=== PATIENT | female | born 1955 | race Caucasian/White ===

== ENCOUNTER 2017-10-15 17:26 | Inpatient (IN) | payer OTHER ==
--- NOTE | 2017-10-15 18:38 | ED.PDOC ---
General Stated Complaint: generalized weakness, fatigue , puritic rash, cough Time Seen by Physician: 17:34 (pt's daughter stated the pt has never seen a a doctor on a regular basis) Mode of Arrival: Wheelchair Information Source: Patient Exam Limitations: No limitations (pt sees a rhumatologist but has missed many landmark screen exams i.e mamography,pap smear ect) Nursing and Triage Documentation Reviewed and Agree: Yes (PT IS ON MTX FOR RA ) Reviewed sepsis parameters & appropriate labs ordered?: Yes System Inflammatory Response Syndrome: Not Applicable System Inflammatory Response Syndrome: Not Applicable <ANIKA SCHULTE - Last Filed: 10/15/17 18:36> <STEPHIE NARVAEZ - Last Filed: 10/15/17 19:42> ED Provider: Dr. STEPHIE NARVAEZ Chief Complaint: Non-specific Complaint Primary Care Provider: STEPHIE N[facility]VAEZ[facility] Sepsis Protocol: For patient's 13 years and over: Temp is 96.8 and below OR 101 and greater Pulse >90 BPM Resp >20/minute Acutely Altered Mental Status Are patient's symptoms suggestive of a new infection, such as: -Pneumonia -Skin, Soft Tissue -Endocarditis -UTI -Bone, Joint Infection -Implantable Device -Acute Abdominal Infection -Wound Infection -Meningitis -Blood Stream Catheter Infection -Unknown Miscellaneous Complaint Exam - Complex/Multi-System Complaint/Exam Onset/Duration: this is a ongoing issue interms of longstanding cough, generalized weakness Symptoms Are: Still present (worse past month) Episodes Lasting: Weeks Initial Severity: Moderate Current Severity: Moderate Location of Pain: no pain offered Pain Radiates to: N/A Character: N/A Aggravating: N/A Alleviating: N/A Associated Signs and Symptoms: Reports: Weakness, Cough. Denies: Decreased responsiveness, Confusion, Agitation, Dizziness, Syncope, Headache, Short of air , Wheezing, Hemoptysis, Chest pain, Palpitations, Edema, Nausea, Vomiting, Diarrhea, Abdominal pain, Back pain, Dysuria, Hematemesis, Melena, Decreased oral intake, Fever, Diaphoresis, Immunocompromised, Anticoagulation Therapy, Recent medication changes, Indwelling certified court/medical interpreter, Prior MRSA, Prior VRE, Recent trauma, Remote trauma Recent Echo/LV Function: No Respiratory Distress: None JVD Present: No Tachypnea Present: No Stridor Present: No Abdominal Findings: Present: Normal findings Glascow Coma Scale (see protocol): 15 Meningeal Signs Positive: No Focal Weakness: Present: None Gait: Normal Gag Reflex Present: Yes Babinski Sign: Negative Right, Negative Left Skin Findings: Present: Rash (ON EXT SIDE OF UPPER EXT CHRONIC) Joint Swelling Present: No In-Dwelling Device Present: No Quality Indicators for Cardiac Chest Pain: EKG in 10min. Quality Indicators for AMI: EKG in 10min. Quality Indicator For Non-Traumatic Chest Pain/Syncope: EKG Performed <ANIKA SCHULTE Last Filed: 10/15/17 18:36> Review of Systems - Review Of Systems Constitutional: Reports: Malaise, Weakness, Loss of appetite Eyes: Reports: No symptoms Ears, Nose, Mouth, Throat: Reports: No symptoms Respiratory: Reports: Cough Cardiac: Reports: No symptoms GI: Reports: No symptoms : Reports: No symptoms Musculoskeletal: Reports: No symptoms Skin: Reports: No symptoms Neurological: Reports: No symptoms Endocrine: Reports: No symptoms Hematologic/Lymphatic: Reports: No symptoms All Other Systems: Reviewed and Negative <ANIKA SCHULTE Filed: 10/15/17 18:36> Past Medical History - Past Medical History Previously Healthy: No Endocrine: Reports: None Cardiovascular: Reports: None Respiratory: Reports: None Hematological: Reports: None Gastrointestinal: Reports: None Genitourinary: Reports: None Neuro/Psych: Reports: None Musculoskeletal: Reports: None Cancer: Reports: None Last Menstrual Period: unknown - Surgical History General Surgical History: Reports: None - Family History Family History: Reports: None - Social History Smoking Status: Current every day smoker, Heavy tobacco smoker Hx Substance Use: No Alcohol Screening: None <ANIKA SCHULTE Last Filed: 10/15/17 18:36> Physical Exam - Physical Exam Appearance: Ill-appearing Ill-appearing: Moderate Pain Distress: Mild Eyes: MEGHAN, EOMI, Conjunctiva clear ENT: Dry mucosa Respiratory: Breath sounds diminished, Rhonchi Cardiovascular: RRR, Pulses normal, No rub, No murmur GI/: Soft, Nontender, No masses, Bowel sounds normal, No Organomegaly Musculoskeletal: Normal strength, ROM intact, No edema, No calf tenderness Skin: Warm, Dry, Normal color Neurological: Sensation intact, Motor intact, Reflexes intact, Cranial nerves intact, Alert, Oriented Psychiatric: Affect appropriate, Mood appropriate <ANIKA SCHULTE - Last Filed: 10/15/17 18:36> Interpretation - Radiology Interpretation Radiology Interpretation By: Radiologist Radiology Results: Positive Exam Interpreted: CT Scan <STEPHIE NARVAEZ - Last Filed: 10/15/17 19:42> Physician Notification - Case Discussed Physician Notified: BRICE Time of Notification: 18:41 <FRANCAANIKA - Last Filed: 10/15/17 18:36> Critical Care Note - Critical Care Note Total Time (mins): 0 <ANIKA SCHULTE - Last Filed: 10/15/17 18:36> Course - Course Hematology/Chemistry: 10/15/17 18:10 <ANIKA SCHULTE - Last Filed: 10/15/17 18:36> - Course Hematology/Chemistry: 10/15/17 18:10 10/15/17 18:10 <STEPHIE NARVAEZ - Last Filed: 10/15/17 19:42> - Course Orders, Labs, Meds: Lab Review 10/15/17 10/15/17 10/15/17 18:10 18:10 18:10 WBC 15.58 H RBC 3.64 L Hgb 13.5 Hct 38.4 MCV 105.5 H MCH 37.1 H MCHC 35.2 RDW Coeff of Marybel 14.0 Plt Count 515 H Immature Gran % (Auto) 1.4 Neut % (Auto) 66.1 Lymph % (Auto) 18.5 Grimes % (Auto) 13.5 H Eos % (Auto) 0.1 Baso % (Auto) 0.4 Immature Gran # (Auto) 0.2 Neut # 10.3 H Lymph # 2.9 Grimes # 2.1 H Eos # 0.0 Baso # 0.1 PT INR APTT Sodium 133 L Potassium 3.2 L Chloride 92 L Carbon Dioxide 30 Anion Gap 14.2 BUN 15 Creatinine 1.00 Estimated GFR (MDRD) 56.00 BUN/Creatinine Ratio 15.00 Glucose 100 Lactic Acid Calcium 9.8 Total Bilirubin 0.4 AST 34 ALT 36 Alkaline Phosphatase 71 Total Protein 8.5 H Albumin 2.8 L Globulin 5.7 Albumin/Globulin Ratio 0.49 Procalcitonin 1.45 TSH 1.570 Free T4 1.35 H Urine Color Urine Clarity Urine pH Ur Specific Adrian Urine Protein Urine Glucose (UA) Urine Ketones Urine Blood Urine Nitrite Urine Bilirubin Urine Urobilinogen Ur Leukocyte Esterase Urine Microscopic WBC Ur Squamous Epith Cells 10/15/17 10/15/17 10/15/17 18:10 18:10 19:09 WBC RBC Hgb Hct MCV MCH MCHC RDW Coeff of Marybel Plt Count Immature Gran % (Auto) Neut % (Auto) Lymph % (Auto) Grimes % (Auto) Eos % (Auto) Baso % (Auto) Immature Gran # (Auto) Neut # Lymph # Grimes # Eos # Baso # PT 10.3 INR 1.01 APTT 25.9 Sodium Potassium Chloride Carbon Dioxide Anion Gap BUN Creatinine Estimated GFR (MDRD) BUN/Creatinine Ratio Glucose Lactic Acid 15.4 Calcium Total Bilirubin AST ALT Alkaline Phosphatase Total Protein Albumin Globulin Albumin/Globulin Ratio Procalcitonin TSH Free T4 Urine Color Yellow Urine Clarity Cloudy Urine pH 6.0 Ur Specific Adrian 1.010 Urine Protein Trace Urine Glucose (UA) Negative Urine Ketones Negative Urine Blood 1+ Urine Nitrite Negative Urine Bilirubin Negative Urine Urobilinogen 0.2 Ur Leukocyte Esterase 2+ Urine Microscopic WBC 50-100 Ur Squamous Epith Cells 10-20 Orders Category Date Time Status EKG-(ED ONLY) Stat CARDIO 10/15/17 17:52 Ordered BLOOD CULTURE Stat LAB 10/15/17 17:52 Ordered CBC W/ AUTO DIFF Stat LAB 10/15/17 18:10 Completed COMPREHENSIVE METABOLIC PANEL Stat LAB 10/15/17 18:10 Completed FREE T4 (FREE THYROXINE) Stat LAB 10/15/17 18:10 Completed LACTIC ACID Stat LAB 10/15/17 18:10 Completed MOLECULAR GROUP A STREP Stat LAB 10/15/17 18:56 Completed PARTIAL THROMBOPLASTIN TIME Stat LAB 10/15/17 18:10 Completed PROCALCITONIN Stat LAB 10/15/17 18:10 Completed PT WITH INR Stat LAB 10/15/17 18:10 Completed THYROID STIMULATING HORMONE Stat LAB 10/15/17 18:10 Completed URINALYSIS C & S IF INDICATED Stat LAB 10/15/17 19:09 Completed URINE CULTURE Stat LAB 10/15/17 19:[address] ABDOMEN/PELVIS WO CONTRAST Stat RADS 10/15/17 17:[address] CHEST W/O CONTRAST Stat RADS 10/15/17 17:53 Completed Vital Signs: Temp Pulse Resp BP Pulse Ox 10/15/17 17:27 99.6 F 98 H 22 129/78 93 L Departure - Departure Time of Disposition: 19:00 Pt referred to PMD for follow-up: Yes IPMP verified?: Yes <MIKIEMILIEANIKA - Last Filed: 10/15/17 18:36> - Departure Pt referred to PMD for follow-up: No Disposition Discussed With: Patient, Family <STEPHIE NARVAEZ - Last Filed: 10/15/17 19:42> - Departure Disposition: ADMITTED INPATIENT Discharge Problem: Pneumonia Qualifiers: Pneumonia type: due to unspecified organism Laterality: bilateral Lung location : unspecified part of lung Qualified Code(s): J18.9 - Pneumonia, unspecified organism Instructions: Community Acquired Pneumonia (ED) Condition: Stable Additional Instructions: Please call your Family Physician as soon as possible to schedule a follow-up appointment. Allergies/Adverse Reactions: Allergies Sulfa (Sulfonamide Antibiotics) Adverse Reaction (Verified 10/15/17 17:40) Home Medications: Ambulatory Orders Celecoxib [Celebrex] 200 mg PO BID 10/15/17 Folic Acid 1 mg PO DAILY 10/15/17 Methotrexate Sodium [Methotrexate] 2.5 mg PO WEEKLY 10/15/17 Prednisone 10 mg PO BIDWM 10/15/17 Tofacitinib Citrate [Xeljanz] 5 mg PO BID 10/15/17 Tramadol HCl [Ultram] 100 mg PO TID 10/15/17
--- NOTE | 2017-10-15 18:45 | CT ---
EXAM: CT of the chest without contrast History: Chronic cough. Comparison: CT abdomen pelvis 10/15/2017 Technique: Multiplanar CT images through the thorax were obtained without the administration of IV c ontrast Findings: Heart size is upper limits of normal. Coronary calcifications. No pericardial effusion. Great vessels are unremarkable. No pathologically enlarged thoracic lymph nodes. Calcified granulo mas are seen within the thorax. Diffuse bronchial wall thickening and scattered subtle centrilobular micronodules. No consolidated pneumonia. No pleural fluid and no pneumothorax. No suspicious lung masses or lung nodules. For details in the upper abdomen, please see dedicated CT abdomen pelvis done on the same day. No acu te osseous abnormalities. Severe degenerative disc disease within the lower thoracic spine and lower cervical spine/upper thoracic spine. Impression: 1. Diffuse bronchial wall thickening and scattered centrilobular micronodules compatible with infect ious/inflammatory process such as bronchiolitis. 2. Coronary artery disease. 3. Severe degenerative disc disease.
--- NOTE | 2017-10-15 18:48 | CT ---
EXAM: CT of the abdomen pelvis without contrast History: Abdominal pain and chronic cough, history of appendectomy. Comparison: Chest CT 10/15/2017 Technique: Multiplanar CT images through the abdomen pelvis were obtained without the administration of IV contrast Findings: Bronchial wall thickening seen within the lower lungs. No acute osseous abnormalities. Se graciela degenerative disc disease within the visualized lower thoracic spine. The gallbladder is not seen in likely has been surgically removed. No focal liver lesions. Calcifie d granulomas within the spleen. Atherosclerotic vascular calcifications. No renal stones and no hyd ronephrosis. Adrenal glands are unremarkable. No peripancreatic inflammation. No dilated loops of bowel. Appendix is not seen. Colonic diverticulosis. No bladder wall thickening. No free air and no ascites. No perirectal inflammation. Somewhat atrophic uterus. Impression: 1. No acute intra-abdominal or pelvic process. 2. Colonic diverticulosis.
[2017-10-15] MEDS ORDERED: TYLENOL PO PRN (19:42)
[2017-10-15] MEDS ORDERED: ROCEPHIN 1 GM in SODIUM CHLORIDE 50 ML IV SCH (20:00)
[2017-10-15] MEDS ORDERED: ROCEPHIN ONE (22:09)
[2017-10-15] MEDS: ZITHROMAX PO SCH (22:18)
[2017-10-15] MEDS: ATARAX PO PRN (22:18)
[2017-10-15] MEDS: SOLU-MEDROL 40 MG IVP SCH (22:19)
[2017-10-15] MEDS: D5%-NS-KCL 20 MEQ/L IV SOL 1,000 ML IV SCH (22:32)
[2017-10-15] MEDS: LOVENOX SUBCUT SCH (22:32)
[2017-10-15 23:05] VITALS: BMI 30.2
[2017-10-16] MEDS: DUONEB NEB SCH ×4 (01:20→20:36)
[2017-10-16] MEDS: ATARAX PO PRN ×2 (02:39→09:13)
[2017-10-16] MEDS ORDERED: PREDNISONE PO SCH (08:00)
[2017-10-16] MEDS ORDERED: NON-FORMULARY MEDICATION (Celecoxib [Celebrex] 200 MG) PO SCH (09:00)
[2017-10-16] MEDS ORDERED: RHEUMATREX PO SCH (09:00)
[2017-10-16] MEDS: LOVENOX SUBCUT SCH (09:06)
[2017-10-16] MEDS: CELEBREX PO SCH ×2 (09:06→17:55)
[2017-10-16] MEDS: FOLIC ACID PO SCH (09:06)
[2017-10-16] MEDS: TOFACITINIB CITRATE 5 MG PO SCH ×2 (09:08→21:14)
[2017-10-16] MEDS: SOLU-MEDROL 40 MG IVP SCH ×3 (09:08→21:13)
[2017-10-16] MEDS: ZITHROMAX PO SCH (09:08)
[2017-10-16] MEDS: ULTRAM PO SCH ×3 (09:13→21:13)
[2017-10-16] MEDS ORDERED: BENADRYL 25 MG in SODIUM CHLORIDE 100 ML IV PRN (11:32)
[2017-10-16] MEDS: BENADRYL IVP PRN ×2 (12:19→23:45)
[2017-10-16] MEDS: D5%-NS-KCL 20 MEQ/L IV SOL 1,000 ML IV SCH (13:05)
[2017-10-16] MEDS: ROCEPHIN 1 GM in SODIUM CHLORIDE 50 ML IV SCH (20:39)
[2017-10-16] MEDS ORDERED: ROCEPHIN ONE (21:10)
[2017-10-17] MEDS: SOLU-MEDROL 40 MG IVP SCH ×2 (05:26→18:00)
[2017-10-17] MEDS: D5%-NS-KCL 20 MEQ/L IV SOL 1,000 ML IV SCH (05:26)
[2017-10-17] MEDS: DUONEB NEB SCH ×4 (05:35→21:42)
[2017-10-17] MEDS ORDERED: IMODIUM PO PRN (08:39)
[2017-10-17] MEDS ORDERED: ATIVAN PO PRN (08:39)
[2017-10-17] MEDS: ULTRAM PO SCH ×3 (09:10→21:28)
[2017-10-17] MEDS: ZITHROMAX PO SCH (09:10)
[2017-10-17] MEDS: FOLIC ACID PO SCH (09:10)
[2017-10-17] MEDS: CELEBREX PO SCH ×2 (09:10→16:55)
[2017-10-17] MEDS: TOFACITINIB CITRATE 5 MG PO SCH ×2 (09:11→21:28)
[2017-10-17] MEDS: LOVENOX SUBCUT SCH (09:11)
[2017-10-17] MEDS: ATARAX PO PRN (16:57)
[2017-10-17] MEDS ORDERED: SOLU-MEDROL 125 MG IVP SCH (18:00)
[2017-10-17] MEDS: ROCEPHIN 1 GM in SODIUM CHLORIDE 50 ML IV SCH (21:28)
[2017-10-18] MEDS: DUONEB NEB SCH ×2 (04:48→10:22)
[2017-10-18] MEDS: BENADRYL IVP PRN (05:20)
[2017-10-18] MEDS: SOLU-MEDROL 40 MG IVP SCH (05:20)
--- NOTE | 2017-10-18 08:47 | HP ---
DATE OF SERVICE: 10/16/17 CHIEF COMPLAINT: Cough, congestion, no energy, shortness of breath and rash. HISTORY OF PRESENT ILLNESS: This is a 61 year old female with multiple medical problems and had not been feeling fine at all for the last two weeks. She stopped taking all of her medications. She has cough, congestion, no energy and did not want to take her medication. She had shortness of breath and was feeling weak and tired. She started itching all over the arms. No fever or chills. She came to the emergency room as her condition was worsening. Temperature was 99.6. White count was 15,000 with left shift. Chemistry showed potassium 3.2. CT of the chest showed pneumonia, diffuse bronchial wall thickening with scattered centrilobular micronodules compatible with pneumonia or infectious process. CT of abdomen and pelvis showed no acute problem. At that time, the patient was admitted to the hospital for the IV antibiotics and breathing treatments. REVIEW OF SYSTEMS: CONSTITUTIONAL: Weakness, tiredness. No fever, no chills. HEENT: Normal. ENDOCRINE: No weight gain; no weight loss. CVS: No chest pain. No PND, no orthopnea. No shortness of breath. No PND, no orthopnea. RESPIRATORY: Cough and congestion. No hemoptysis. GI: No nausea, no vomiting. No abdominal pain. No melena. : No hematuria. No polyuria. MUSCULOSKELETAL: Joint pains. PSYCHIATRIC: Sad. Not anxious. No depression. No suicidal thoughts. No homicidal thoughts. SKIN: Rash. PAST MEDICAL HISTORY: Hypertension Osteoarthritis Rheumatoid arthritis Obesity PAST SURGICAL HISTORY: Tubal ligation Cholecystectomy Appendectomy PERSONAL HISTORY: The patient does not smoke or drink alcohol. FAMILY HISTORY: Significant for breast cancer. HOME MEDICATIONS: Xeljanz 5 mg twice daily Prednisone 10 mg twice daily Celebrex 200 mg daily Folic Acid 1 mg daily Methotrexate 2.5 mg weekly Tramadol 100 mg three times a day ALLERGIES: Sulfa. PHYSICAL EXAMINATION: Sick looking lady lying in the bed. V/S: Blood pressure 134/80, respiratory rate 20, heart rate 95, temperature 98.5 , saturation 96 on room air. HEENT: Atraumatic, normocephalic. No scleral icterus. Pallor positive. Mucosa dry. NECK: Supple. No JVD, no bruit. No lymphadenopathy. No thyromegaly. HEART: S1, S2 normal. No murmur. No cyanosis or clubbing. No ascites. LUNGS: Bilateral basilar crackles are present. No rales or rhonchi. ABDOMEN: Soft, nontender. Bowel sounds are active. No CVA tenderness. No rigidity or guarding. EXTREMITIES: 1+ edema. No cyanosis or clubbing MUSCULOSKELETAL: Joint pain, no swelling. NEUROLOGIC: The patient is awake, alert. SKIN: Rash. LYMPHATIC: No lymph nodes palpable. LABS: White count 15.58, hemoglobin 13.5, hematocrit 38.4, platelet count 515. PT and INR are normal. Sodium 133, potassium 3.2, chloride 92, bicarb 30, BUN 15, creatinine 1.0, glucose 100. Urine is cloudy. nitrites negative, leukocyte esterase positive at 2+. ASSESSMENT: 1. COMMUNITY ACQUIRED PNEUMONIA 2. URINARY TRACT INFECTION 3. WEAKNESS 4. RHEUMATOID ARTHRITIS 5. DJD OF THE SPINE 6. OSTEOARTHRITIS PLAN: 1. Admit the patient to the regular floor. 2. CBC, CMP today and daily. 3. Cardiac enzymes and Troponins. 4. IV fluids with potassium. 5. Rocephin. 6. Solu-Medrol. 7. Lovenox for the DVT prophylaxis. 8. Azithromycin. 9. DuoNebs. TIME SPENT: MORE THAN 75 minutes MTDD
--- NOTE | 2017-10-18 09:05 | PN ---
DATE OF SERVICE: 10/16/17 SUBJECTIVE: She still has some itching and scratching. Otherwise, breathing is better. She still has some cough. The patient's daughter is in the room. PHYSICAL EXAMINATION: V/S: Blood pressure 122/67, respiratory rate 20, heart rate 78, temperature 97.7 , saturation 95 on room air. HEENT: Normocephalic, atraumatic. Mucosa dry. Pallor positive. No icterus. NECK: Supple. No JVD, no carotid bruit. No lymphadenopathy. LUNGS: Basilar crackles. No rales or rhonchi. HEART: S1, S2 normal. No S3. No murmur, gallop or regurgitation. ABDOMEN: Soft, nontender. Bowel sounds active. No rigidity. No rebound or guarding. No CVA tenderness. EXTREMITIES: 1+ edema. No clubbing or cyanosis MUSCULOSKELETAL: No joint swelling. NEUROLOGIC: Awake, alert, oriented times three. No focal deficit. LYMPHATIC: No lymph nodes palpable. SKIN: The skin has some scratch landa and some red lesions on the neck and the upper extremities. LABS: White count 11.66, hemoglobin 12.2, hematocrit 35.5, platelet count 452, sodium 134, potassium 3.5, chloride 95, bicarb 30, BUN 12, creatinine 0.96, glucose 195. ASSESSMENT: 1. COMMUNITY ACQUIRED PNEUMONIA 2. HYPOKALEMIA 3. URINARY TRACT INFECTION 4. RHEUMATOID ARTHRITIS 5. DEPENDANT EDEMA PLAN: 1. Continue the Rocephin, Azithromycin, DuoNebs, Solu-Medrol. 2. Atarax for the itching. TIME SPENT: More than 35 minutes MTDD
--- NOTE | 2017-10-18 09:13 | PN ---
DATE OF SERVICE: 10/17/17 SUBJECTIVE: The patient was admitted with pneumonia and weakness, tiredness and shortness of breath, hypokalemia. The patient was able to walk today. She is less short of breath. Has some cough. PHYSICAL EXAMINATION: V/S: Blood pressure 138/67, respiratory rate 20, heart rate 74, temperature 98.9 , saturation 96. HEENT: Normocephalic, atraumatic. Mucosa dry. Pallor positive. No icterus NECK: Supple. No JVD, no carotid bruit. No lymphadenopathy. LUNGS: Decreased basilar crackles. No rales or rhonchi. HEART: S1, S2 normal. No S3. No murmur, gallop or regurgitation. ABDOMEN: Soft, nontender. Bowel sounds active. No rigidity. No rebound or guarding. No CVA tenderness. EXTREMITIES: No edema today. No clubbing or cyanosis MUSCULOSKELETAL: No joint swelling. NEUROLOGIC: Awake, alert, oriented times three. No focal deficit. LYMPHATIC: No lymph nodes palpable. SKIN: Intact. LABS: Sodium 138, potassium 3.9, chloride 101, bicarb 24, BUN 15, creatinine 0.91, white count 16.38, hemoglobin 10.0, hematocrit 29.4, platelet count 402. ASSESSMENT: 1. COMMUNITY ACQUIRED PNEUMONIA 2. HYPOKALEMIA 3. RHEUMATOID ARTHRITIS 4. ANEMIA, PROBABLY FROM THE DILUTION 5. ANXIETY PLAN: 1. Continue Azithromycin, Rocephin, Lovenox for the DVT prophylaxis, Solu- Medrol. 2. Out of bed to chair. 3. Activity as tolerated. TIME SPENT: More than 35 minutes MTDD
[2017-10-18] MEDS: CELEBREX PO SCH (09:25)
[2017-10-18] MEDS: ULTRAM PO SCH (09:25)
[2017-10-18] MEDS: FOLIC ACID PO SCH (09:25)
[2017-10-18] MEDS: LOVENOX SUBCUT SCH (09:25)
[2017-10-18] MEDS: TOFACITINIB CITRATE 5 MG PO SCH (09:26)
[2017-10-18 11:21] VITALS: BP 162/82; TEMP 98.5
--- NOTE | 2017-11-26 10:44 | DS ---
DATE OF SERVICE: 10/18/17 FINAL DIAGNOSIS: 1. Community acquired pneumonia 2. Hypokalemia which is corrected 3. Rheumatoid arthritis 4. Anemia probably from the dilution 5. Anxiety disorder 6. Osteoarthritis 7. Cholecystectomy 8. Appendectomy 9. Tubal ligation DISCHARGE INSTRUCTIONS: Discharge the patient home. Continue the rest of the home medication. MEDICATIONS AT DISCHARGE: Celebrex Folic Acid Methotrexate Xeljanz Tramadol NEW PRESCRIPTIONS: Keflex 500mg twice a day for 5 days Prednisone 10mg twice a day for 5 days DIET INSTRUCTIONS: Cardiac and healthy ACTIVITY: As much as tolerated SMOKING: Current everyday smoker. Heavy tobacco smoker. DISEASE SPECIFIC EDUCATION: Pneumonia and pneumonia vaccination been discussed because of the patient's rheumatoid arthritis the patient should be getting the pneumonia vaccination. Antibiotics use and diarrhea been discussed. HOSPITAL COURSE: Rosangela Ahn came to the emergency room with cough, congestion, shortness of breath and itching in upper extremities. The patient came to the emergency room and was seen by Dr. Graham in the emergency room. Initial WBC was 15,000, sodium 133, potassium 3.2. CT chest is showing pneumonia. At that time she was admitted to the hospital for IV antibiotics, breathing treatments and replacing the potassium and also her dermatitis being treated for Atarax. CT chest showed the diffused bronchial wall thickening, scattered centrilobular micronodule infectious/inflammatory process. At that time she was admitted to the hospital and started the IV steroids and antibiotics. Rocephin 1 gram daily, Solu-Medrol 40mg Q 8 hours was given and breathing treatment and DUO nebs were given. Lovenox for the DVT prophylaxis. With the given treatment the patient started feeling better gradually and itching and scratching is also improved. Potassium became 3.5 with replacement. WBC went up to 20,000 most likely from steroids. Urine was cloudy and leukocyte esterase positive, did not grow any organism. Up and about and walking at that time the patient being discharged home. TIME SPENT: MORE THAN 65 MINUTES MTDD
== END 2017-10-18 13:06 | disposition home or self-care (01) | DRG 195 ==
LOC: ED 17:26 → MEDSURG A 19:59
PROVIDERS: ADMIT Emergency Medicine; ATTEND Emergency Medicine
DX: J18.9 Pneumonia, unspecified organism (principal); E87.6 Hypokalemia; M06.9 Rheumatoid arthritis, unspecified; D64.89 Other specified anemias; F41.9 Anxiety disorder, unspecified; M19.90 Unspecified osteoarthritis, unspecified site; Z98.890 Other specified postprocedural states
CPT/HCPCS: 36415; 80053; 81001; 82550; 82553; 83605; 84145; 84439; 84443; 84484; 85025; 85610; 85730; 87040; 87086; 87651; 93005; 93010; 94640; 99285

== ENCOUNTER 2017-11-29 15:55 | Outpatient (CLI) | END 2017-11-29 15:56 | disposition home or self-care (01) | LOC: LAB 15:55 | PROVIDERS: ATTEND Emergency Medicine | DX: J44.9 Chronic obstructive pulmonary disease, unspecified (principal); M47.26 Other spondylosis with radiculopathy, lumbar region; M05.761 Rheumatoid arthritis with rheumatoid factor of right knee without organ or systems involvement; E78.5 Hyperlipidemia, unspecified; R60.9 Edema, unspecified; R27.0 Ataxia, unspecified; Z79.52 Long term (current) use of systemic steroids | CPT/HCPCS: 36415; 80053; 80061; 82306; 84443; 85025 ==